=== PATIENT | female | born 1990 | race Caucasian/White ===

== ENCOUNTER 2025-08-20 13:30 | Inpatient (IN) | payer OTHER ==
[~2025-08-20] VITALS: Ht 165.1 cm; Wt 78.9 kg
[2025-08-26 14:36] VITALS: BP 119/76
[2025-08-26] MEDS ORDERED: AMPICILLIN SODIUM 2,000 MG VIAL IV STA (15:07)
[2025-08-26] MEDS ORDERED: PRENATAL TABLE1 EAC1 PO (15:14)
[2025-08-26] MEDS ORDERED: RINGERS SOLUTION,LACTATED 1,000 ML IV SCH (15:15)
[2025-08-26] MEDS ORDERED: ACETAMINOPHEN 500 MG GEL..CAP PO PRN (16:00)
[2025-08-26] MEDS ORDERED: ERYTHROMYCIN BASE OPHT 1GM EACH TUBE OP ONE (16:00)
[2025-08-26] MEDS ORDERED: OXYTOCIN 1,000 ML IV SCH (16:00)
[2025-08-26] MEDS ORDERED: CHLORHEXIDINE GLUCONATE 120 ML BOTTLE TOP ONE (16:00)
[2025-08-26 16:28] LABS: BASO % 0.2 % (0.1-1.2); EOS # 0.01 (0.04-0.54); EOS % 0.1 % (0.7-7.0); LYMPH # 1.33 (1.18-3.74); LYMPH % 9.9 % (19.3-53.1); MEAN PLATELET VOLUME 10.40 fl (9.4-12.4); MONO # 0.59 (0.24-0.82); MONO % 4.4 % (4.7-12.5); NEUT # 11.36 (1.56-6.13); NEUT % 84.8 % (34.0-71.1); RED CELL DISTRIBUTION WIDTH 12.8 % (11.6-14.4)
[2025-08-26 16:40] VITALS: BP 130/75
[2025-08-26 16:46] VITALS: BP 103/81
[2025-08-26 16:48] LABS: INR < 0.93
[2025-08-26 16:52] LABS: ALT/SGPT 19.0 U/L (12-78); AST/SGOT 16.0 U/L (15-37); BILIRUBIN TOTAL 0.52 mg/dL (0.3-1.2); BUN CREA RATIO 14.0 (7.0-25.0); CREATININE SERUM 0.69 mg/dL (0.55-1.02); GFR 96.27; GLOBULINA 3.6 G/DL (2.4-3.5); GLUCOSE FASTING 84.0 mg/dL (65-100); OSMOLALITY SERUM 274.0 MOSM/KG (275-295)
[2025-08-26 17:00] VITALS: BP 117/81
[2025-08-26] MEDS ORDERED: HYDROCORTISONE 2.5% 30 GM TUBE RECTAL SCH (17:00)
[2025-08-26] MEDS ORDERED: BENZOCAINE/MENTHOL 90 ML BOTTLE TOP SCH (17:00)
[2025-08-26 19:04] VITALS: BP 117/73
[2025-08-27 00:31] VITALS: BP 120/70
[2025-08-27 01:40] LABS: BASO % 0.2 % (0.1-1.2); EOS # 0.03 (0.04-0.54); EOS % 0.2 % (0.7-7.0); LYMPH # 2.22 (1.18-3.74); LYMPH % 12.5 % (19.3-53.1); MEAN PLATELET VOLUME 10.30 fl (9.4-12.4); MONO # 1.26 (0.24-0.82); MONO % 7.1 % (4.7-12.5); NEUT # 14.14 (1.56-6.13); NEUT % 79.5 % (34.0-71.1); RED CELL DISTRIBUTION WIDTH 12.6 % (11.6-14.4)
[2025-08-27 08:50] VITALS: BP 113/74
[2025-08-27 16:40] VITALS: BP 111/68
[2025-08-28 00:33] VITALS: BP 120/77
[2025-08-28 08:00] VITALS: BP 114/68
== END 2025-08-28 13:49 | disposition home or self-care (01) | DRG 807 ==
LOC: OB/GYN 08-26 14:46 → LDR 08-26 14:46 → OB/GYN 08-26 15:45
PROVIDERS: ADMIT Specialist; ATTEND Specialist
PROC: 10E0XZZ Delivery of Products of Conception, External Approach (ICD-10-PCS; principal; 2025-08-26)
PROC: 4A1HXCZ Monitoring of Products of Conception, Cardiac Rate, External Approach (ICD-10-PCS; 2025-08-26)
DX: O99.824 Streptococcus B carrier state complicating childbirth (principal); Z37.0 Single live birth; Z3A.39 39 weeks gestation of pregnancy